=== PATIENT | female | born 1995 | race Caucasian/White ===

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

== ENCOUNTER 2017-01-08 17:08 | Emergency (ER) | payer MEDICAID, OTHER, SELFPAY ==
[2017-01-08] MEDS ORDERED: XYLOCAINE 1% HCL 20 ML MDV IJ ONE (17:32)
[2017-01-08] MEDS ORDERED: BACIGUENT PACKET TP ONE (17:32)
[2017-01-08] MEDS ORDERED: BACIGUENT PACKET ONE (17:37)
[2017-01-08] MEDS ORDERED: XYLOCAINE 1% HCL 20 ML MDV ONE (17:37)
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
[2017-01-08 18:54] VITALS: BP 115/74; PULSE 77
[2017-01-08 19:05] VITALS: O2SAT 96
--- NOTE | 2017-01-09 08:36 | XRAY ---
Indication: Fifth finger laceration. Comparison: January 05, 2015. 3 views of the right hand now demonstrates fifth DIP laceration anteriorly. No other bony, articular, or soft tissue abnormalities.
== END 2017-01-08 19:00 | disposition home or self-care (01) ==
LOC: ED 17:08
PROC: 0HQFXZZ Repair Right Hand Skin, External Approach (ICD-10-PCS; principal; 2017-01-08)
DX: S61.210A Laceration without foreign body of right index finger without damage to nail, initial encounter (principal); W25.XXXA Contact with sharp glass, initial encounter
CPT/HCPCS: 12001; 73130; 99283; A9270-GY

== ENCOUNTER 2018-04-08 22:05 | Observation (INO) | payer OTHER ==
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
[2018-04-08 22:52] LABS: BASOPHIL % 0.5 % (0.0-0.4); Basophil (Absolute #) 0.03 (0-0.4); Eosinophil % 2.9 % (0.00-5.0); Eosinophil (Absolute #) 0.19 (0-0.5); Granulocyte Absolute (ANC) 3.82 (1.4-6.9); Granulocytes % 57.9 % (36.0-66.0); Hematocrit 42.9 % (35-47); Hemoglobin 14.4 gm/dl (12.0-16.0); Lymphocyte (Absolute #) 2.03 (1.0-4.6); Lymphocytes % 30.9 % (24.0-44.0); Mean Cell Volume 86.1 fl (78-100); Mean Corpuscular Hemoglobin 28.9 pg (26-32); Mean Corpuscular Hgb Concent. 33.6 g/dl (32-36); Mean Platelet Volume 10.3 fl (6-9.5); Monocyte (Absolute #) 0.51 (0.0-1.3); Monocytes % 7.8 % (0.0-12.0); Platelet Count 211 K/mm3 (150-450); Red Blood Count 4.98 M/mm3 (4.1-5.4); White Blood Count 6.6 K/mm3 (4.0-10.5)
[2018-04-08 23:04] LABS: Appearance SLIGHTLY CLOUDY (CLEAR); Bacteria RARE /HPF (NEGATIVE); Bilirubin NEGATIVE (NEGATIVE); Blood NEGATIVE Ery/ul (0-5); Epithelial Cells RARE /HPF (FEW); Glucose NEGATIVE (NEGATIVE); Ketones NEGATIVE (NEGATIVE); Leukocyte Esterase NEGATIVE (NEGATIVE); Mucus SLIGHT /HPF (NEGATIVE); Nitrite NEGATIVE (NEGATIVE); Protein,Urine Dip 100 (Negative); Specific Gravity 1.014 (1.005-1.025); Urobilinogen NEGATIVE mg/dL (0-1)
[2018-04-08 23:09] LABS: Barbiturate,Urine NEGATIVE (NEGATIVE); Benzodiazepine,Urine POSITIVE (NEGATIVE); Cocaine,Urine NEGATIVE (NEGATIVE); Methadone,Urine NEGATIVE (NEGATIVE); Opiate,Urine NEGATIVE (NEGATIVE); PCP,Urine NEGATIVE (NEGATIVE); THC,Urine POSITIVE (NEGATIVE)
[2018-04-08 23:12] LABS: ANION GAP 17.1 MEQ/L (5-15); BLOOD UREA NITROGEN 9 mg/dL (7-17); CHLORIDE 107 mmol/L (98-107); Calcium 9.5 mg/dL (8.4-10.2); Carbon Dioxide 22 mmol/L (22-30); ETHYL ALCOHOL 155 mg/dL (0-10); Glucose 114 mg/dL (74-106); Potassium 4.1 mmol/L (3.5-5.1); SODIUM 142 mmol/L (137-145)
[2018-04-08 23:15] LABS: ACETAMINOPHEN < 10 ug/ml (10-30); SALICYLATE < 1.0 mg/dL (2-20)
[2018-04-08 23:33] LABS: Amphetamine,Urine POSITIVE (NEGATIVE)
[2018-04-09] MEDS ORDERED: TYLENOL 325 MG PO PRN (01:23)
[2018-04-09] MEDS ORDERED: Zofran 4 MG/2 ML VIAL IV PRN (01:23)
[2018-04-09] MEDS: Sodium Chloride 0.9% 1000 ML 1,000 ML IV SCH ×2 (01:29→11:34)
[2018-04-09] MEDS: Ativan 2 MG/1 ML VIAL IV PRN ×3 (03:05→12:25)
[2018-04-09] MEDS: Nicoderm CQ 21 MG TOP SCH ×2 (03:05→13:41)
[2018-04-09 06:01] LABS: BASOPHIL % 0.5 % (0.0-0.4); Basophil (Absolute #) 0.03 (0-0.4); Eosinophil % 3.1 % (0.00-5.0); Eosinophil (Absolute #) 0.18 (0-0.5); Granulocytes % 55.2 % (36.0-66.0); Hematocrit 39.2 % (35-47); Hemoglobin 12.9 gm/dl (12.0-16.0); Lymphocytes % 32.8 % (24.0-44.0); Mean Cell Volume 86.7 fl (78-100); Mean Corpuscular Hemoglobin 28.5 pg (26-32); Mean Corpuscular Hgb Concent. 32.9 g/dl (32-36); Mean Platelet Volume 9.6 fl (6-9.5); Monocyte (Absolute #) 0.49 (0.0-1.3); Monocytes % 8.4 % (0.0-12.0); Platelet Count 192 K/mm3 (150-450); Red Blood Count 4.52 M/mm3 (4.1-5.4); Red Cell Distribution Width 12.8 % (11.5-14.0); White Blood Count 5.8 K/mm3 (4.0-10.5)
[2018-04-09 06:22] LABS: ANION GAP 13.3 MEQ/L (5-15); BLOOD UREA NITROGEN 7 mg/dL (7-17); CHLORIDE 107 mmol/L (98-107); Carbon Dioxide 23 mmol/L (22-30); Creatinine 1 0.56 mg/dL (0.52-1.04); Glucose 116 mg/dL (74-106); Potassium 4.3 mmol/L (3.5-5.1); SODIUM 138 mmol/L (137-145)
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
[2018-04-09 12:00] VITALS: O2SAT 99
[2018-04-09 15:47] VITALS: BP 129/83; PULSE 91
== END 2018-04-09 16:30 ==
LOC: ED 22:05 → MED SURG 04-09 01:22
PROVIDERS: ADMIT General Practice; ATTEND General Practice
DX: S51.812A Laceration without foreign body of left forearm, initial encounter (principal); X78.8XXA Intentional self-harm by other sharp object, initial encounter; F10.929 Alcohol use, unspecified with intoxication, unspecified; F15.10 Other stimulant abuse, uncomplicated
CPT/HCPCS: 36000; 36415; 70450; 70486; 80048; 80307; 81001; 81025; 85025; 99285; G0378; G0480; G0481; J2060; A9270-GY

== ENCOUNTER 2020-04-24 06:14 | Emergency (ER) | payer OTHER ==
--- NOTE | 2020-04-24 06:35 | ERPHSYRPT ---
- History of Present Illness Source: patient, police Exam Limitations: clinical condition Timing/Duration: today Severity of Symptoms-Max: moderate Severity of Symptoms-Current: moderate Context related to: other (Intoxication) Associated Symptoms: confused, impaired concentration, ingestion Previous symptoms: same symptoms as today Hx Tetanus, Diphtheria Vaccination/Date Given: No Hx Influenza Vaccination/Date Given: No Hx Pneumococcal Vaccination/Date Given: No <WILMAR CONNOR - Last Filed: 04/24/20 06:55> <TAHIRA SIMMONS - Last Filed: 04/24/20 07:17> - History of Present Illness Time Seen by Provider: 04/24/20 06:30 Physician History: This is a 24-year-old white female who presents to the emergency department stating that she needs help. Patient is intoxicated with at least methamphet amines and mushroom ingestion. She admits to those intoxicants. She is confused and cannot tell us when she last used those intoxicants. Police is now involved because she was knocking and banging on multiple homes and entering homes after breaking in to them. She is not thinking clearly and is confused. She denies shortness of breath. She denies chest pain. She denies abdominal pain. She has had no injuries. Patient states she is not suicidal or homicidal. (WILMAR CONNOR) Allergies/Adverse Reactions: No Known Drug Allergies Allergy (Verified 04/24/20 06:16) Home Medications: No Reportable Medications [No Reported Medications] 04/09/18 [History] Travel Risk - International Travel Have you traveled outside of the country in past 3 weeks: No - Coronavirus Screening Are you exhibiting any of the following symptoms?: No Close contact with a COVID-19 positive Pt in past 14-21 Days: No <WILMAR CONNOR - Last Filed: 04/24/20 06:55> - Past Medical History Pertinent Past Medical History: No Neurological History: No Pertinent History ENT History: No Pertinent History Cardiac History: No Pertinent History Respiratory History: No Pertinent History Endocrine Medical History: No Pertinent History Musculoskeletal History: Other GI Medical History: No Pertinent History History: No Pertinent History Psycho-Social History: No Pertinent History Female Reproductive Disorders: No Pertinent History Other Medical History: laceration to right hand fifth digit with tendon damage. (patient states she cut her finger and didn't get tendon repaired. now cannot bend finger) - Past Surgical History Past Surgical History: No Neuro Surgical History: No Pertinent History Cardiac: No Pertinent History Respiratory: No Pertinent History Gastrointestinal: No Pertinent History Genitourinary: No Pertinent History Musculoskeletal: No Pertinent History Female Surgical History: No Pertinent History - Social History Smoking Status: Current every day smoker How long have you smoked: 3 years Exposure to second hand smoke: Yes Drug Use: marijuana, methamphetamines Patient Lives Alone: No <WILMAR CONNOR - Last Filed: 04/24/20 06:55> - Review of Systems Constitutional: No Symptoms Eyes: No Symptoms Ears, Nose, & Throat: No Symptoms Respiratory: No Symptoms Cardiac: No Symptoms Abdominal/Gastrointestinal: No Symptoms Genitourinary Symptoms: No Symptoms Musculoskeletal: No Symptoms Skin: No Symptoms Neurological: No Symptoms Psychological: No Symptoms Endocrine: No Symptoms Hematologic/Lymphatic: No Symptoms Immunological/Allergic: No Symptoms All Other Systems: Reviewed and Negative <WILMAR CONNOR - Last Filed: 04/24/20 06:55> - Physical Exam General Appearance: mild distress, alert, anxiety Eyes, Ears, Nose, Throat Exam: normal ENT inspection, moist mucous membranes Neck Exam: normal inspection, non-tender, supple, full range of motion Respiratory Exam: normal breath sounds, lungs clear, airway intact, No chest tenderness, No respiratory distress Cardiovascular Exam: regular rate/rhythm, normal heart sounds, normal peripheral pulses Gastrointestinal/Abdominal Exam: soft, normal bowel sounds, No tenderness, No guarding Extremities Exam: normal inspection, normal range of motion, No evidence of injury Current Suicidality: denies suicide plan Neurological Exam: agitated, anxious Appearance: impaired insight, impaired recent memory Behavior/Eye Contact/Speech: avoids eye contact, agitated, intoxicated appearance Thoughts/Hallucinations: incoherent, paranoid, visual hallucinations Skin Exam: normal color, warm, dry SpO2 Interpretation: normal O2 Delivery: Room Air <WILMAR CONNOR - Last Filed: 04/24/20 06:55> - Nursing Vital Signs Nursing Vital Signs: Initial Vital Signs Temperature 97.7 F 04/24/20 06:15 Pulse Rate 120 H 04/24/20 06:15 Respiratory Rate 20 04/24/20 06:15 O2 Sat by Pulse Oximetry 100 04/24/20 06:15 Pain Scale Pain Intensity 0 - Course Nursing assessment & vital signs reviewed: Yes EKG Interpreted by Me: RATE ([id number]), Sinus Rhythm, Right [place] Deviation, NORMAL INTERVALS, NORMAL QRS, NORMAL ST-T, Other (No acute ischemic changes. No change from comparison EKG dated 04/09/2018) <WILMAR CONNOR - Last Filed: 04/24/20 06:55> Ordered Tests: Active Orders 24 hr Category Date Time Status Cath for Specimen-Straight STAT Care 04/24/20 06:39 Active EKG-ER Only STAT Care 04/24/20 06:38 Active ACETAMINOPHEN Stat Lab 04/24/20 06:38 Ordered CBC W DIFF Stat Lab 04/24/20 06:38 Ordered CMP Stat Lab 04/24/20 06:38 Ordered CULTURE,URINE Stat Lab 04/24/20 06:38 Ordered ETHYL ALCOHOL Stat Lab 04/24/20 06:38 Ordered HCG,QUALITATIVE URINE Stat Lab 04/24/20 06:38 Ordered UA W/RFX UR CULTURE Stat Lab 04/24/20 06:38 Ordered Urine Triage Profile Stat Lab 04/24/20 06:38 Ordered Medication Summary Discontinued Medications Generic Name Dose Route Start Last Admin Trade Name Freq PRN Reason Stop Dose Admin Haloperidol Lactate 5 mg 04/24/20 07:07 04/24/20 07:12 Haldol 5 Mg IM 04/24/20 07:08 5 mg STAT ONE Administration Haloperidol Lactate Confirm 04/24/20 07:10 Haldol 5 Mg Administered 04/24/20 07:11 Dose 5 mg .ROUTE .STK-MED ONE Lorazepam 2 mg 04/24/20 06:45 04/24/20 06:47 Ativan 2 Mg/1 Ml Vial IM 04/24/20 06:46 2 mg STAT ONE Administration Lorazepam Confirm 04/24/20 06:47 Ativan 2 Mg/1 Ml Vial Administered 04/24/20 06:48 Dose 2 mg .ROUTE .STK-MED ONE - Progress Progress: improved, re-examined Counseled pt/family regarding: lab results, diagnosis, need for follow-up <WILMAR CONNOR - Last Filed: 04/24/20 06:55> <TAHIRA SIMMONS - Last Filed: 04/24/20 07:17> - Progress Progress Note: 04/24/20 06:55 Transfer of care to Dr. Simmons at shift change. He accepts patient in transfer and will make final disposition (WILMAR CONNOR) 04/24/20 07:16 Haldol 5 milligrams intramuscular given and was able to answer the question appropriately patient will be discharged to snf as patient medically clear. (TAHIRA SIMMONS) - Departure Departure Disposition: Senior Living/Half-Way Critical Care Time: No <WILMAR CONNOR - Last Filed: 04/24/20 06:55> - Departure Departure Disposition: Senior Living/Half-Way <TAHIRA SIMMONS - Last Filed: 04/24/20 07:17> - Departure Clinical Impression: Medical clearance for incarceration, Methamphetamine abuse, Methamphetamine abuse Condition: Stable Referrals: DOCTOR,NO FAMILY [Primary Care Provider] -
[2020-04-24] MEDS ORDERED: Ativan 2 MG/1 ML VIAL IM ONE (06:45)
[2020-04-24 06:47] VITALS: O2SAT 100
[2020-04-24] MEDS ORDERED: Ativan 2 MG/1 ML VIAL ONE (06:47)
[2020-04-24] MEDS ORDERED: Haldol 5 MG IM ONE (07:07)
[2020-04-24] MEDS ORDERED: Haldol 5 MG ONE (07:10)
[2020-04-24 07:30] VITALS: BP 122/98; PULSE 94
== END 2020-04-24 07:53 | disposition home or self-care (01) ==
LOC: ED 06:14
DX: Z02.89 Encounter for other administrative examinations (principal); F15.10 Other stimulant abuse, uncomplicated
CPT/HCPCS: 93005; 96372; 99284; J1630; J2060